=== PATIENT | male | born 1965 | race Caucasian/White ===

== ENCOUNTER 2018-10-23 19:27 | Emergency (ER) | payer BC ==
[~2018-10-23] VITALS: Ht 182.9 cm; Wt 95.3 kg
[2018-10-23] MEDS ORDERED: IBUPROFEN 600 MG TABLET PO ONE ×2 (20:25→20:30)
[2018-10-23 21:03] VITALS: BP 138/87
== END 2018-10-23 21:04 | disposition home or self-care (01) ==
LOC: ER 19:35
DX: S93.492A Sprain of other ligament of left ankle, initial encounter (principal); I10 Essential (primary) hypertension; J45.909 Unspecified asthma, uncomplicated; X50.1XXA Overexertion from prolonged static or awkward postures, initial encounter; Y93.01 Activity, walking, marching and hiking; Y92.89 Other specified places as the place of occurrence of the external cause; Y99.8 Other external cause status
CPT/HCPCS: 29515; 73610; 99283; A4606